=== PATIENT | male | born 1990 | race Two or more races ===

== ENCOUNTER 2024-09-08 10:56 | Emergency (ER) | payer MEDICAID, SELFPAY ==
[2024-09-08 10:56] VITALS: BMI 26.4
[2024-09-08 11:09] VITALS: BP 139/96; PULSE 124; RESP 19; TEMP 36.9; O2SAT 99
[2024-09-08 12:13] LABS: Basophils # (Auto) 0.1 Thou/mm3 (0.0-0.2); Basophils % (Auto) 0 % (0-2.5); Eosinophils # (Auto) 0.3 Thou/mm3 (0.0-0.5); Eosinophils % (Auto) 2 % (0-10); Hematocrit 45.2 % (41.0-53.0); Hemoglobin 16.1 g/dL (13.5-16.0); Immature Granulocytes % (Auto) 0 % (0-0); Immature Granulocytes Auto 0.04 Thou/mm3 (0.00-0.00); Lymphocytes # (Auto) 1.4 Thou/mm3 (1.0-4.8); Lymphocytes % (Auto) 11 % (10-50); Mean Corpuscular HGB Conc 35.6 g/dl (31.0-37.0); Mean Corpuscular Hemoglobin 31.2 pg (25.0-35.0); Mean Corpuscular Volume 88 fL (80-100); Monocytes # (Auto) 0.3 Thou/mm3 (0.0-0.8); Monocytes % (Auto) 3 % (0-12); Neutrophils % (Auto) 84 % (37-80); Nucleated Red Blood Cell % 0 /100 WBC (0); Platelet Count 338 Thou/mm3 (140-440); RDW Standard Deviation 39.5 fL (35.1-43.9); Red Blood Count 5.16 Miln/mm3 (4.50-5.90); White Blood Count 13.1 Thou/mm3 (3.8-10.6)
[2024-09-08 12:34] LABS: Alanine Aminotransferase 25 U/L (10-49); Albumin, Serum 4.9 gm/dL (3.5-5.0); Albumin/Globulin Ratio 1.4 (1.2-2.2); Alcohol, Blood Medical 11.3 mg/dL (0-10.0); Alkaline Phosphatase 121 U/L (46-116); Anion Gap 15 (7-16); Aspartate Amino Transferase 30 U/L (0-34); BUN/Creatinine Ratio 17 Ratio (12-20); Bilirubin,Total 0.6 mg/dL (0.3-1.2); Blood Urea Nitrogen 12 mg/dL (9-23); Calcium 10.3 mg/dL (8.3-10.6); Calcium (Corrected) 10.3 mg/dL (8.5-10.1); Carbon Dioxide 22.5 mMol/L (20.0-31.0); Chloride 102 mMol/L (98-107); Creatinine (Component) 0.7 mg/dL (0.6-1.3); Estimated Creatinine Clearance 121.7 mL/min (>60); Globulin 3.4 gm/dL (2.3-3.5); Glucose 136 mg/dL (74-106); Lipase 32 U/L (12-53); Osmolality,Calculated 279 (275-295); Potassium 4.2 mMol/L (3.4-5.1); Sodium 139 mMol/L (136-145); Total Protein 8.3 gm/dL (5.7-8.2); eGFR > 60 See Note
[2024-09-08 13:20] LABS: Magnesium 2.2 mg/dL (1.6-2.6)
[2024-09-08] MEDS: SODIUM CHLORIDE 0.9% 1000 ML 1,000 ML 999 ML IV (14:43)
[2024-09-08] MEDS: LORazepam 2 MG/ML VIAL IVP (14:50)
[2024-09-08] MEDS: METOCLOPRAMIDE INJ 5 MG/ML VIAL 2 ML 10 MG IVP (14:50)
--- NOTE | 2024-09-08 15:26 | PD.EDRME ---
Rapid Medical Screening Exam RME Arrival date/time: 09/08/24 10:56 33-year-old male who admits to drinking alcohol every day presents emergency department complains of nausea vomiting Chief Complaint: Alcohol Vital signs: Vital Signs Temperature 98.5 F 09/08/24 11:09 Pulse Rate 124 H 09/08/24 11:09 Respiratory Rate 19 09/08/24 11:09 Blood Pressure 139/96 H 09/08/24 11:09 Pulse Oximetry (%) 99 09/08/24 11:09 Oxygen Delivery Method Room Air 09/08/24 11:09
== END 2024-09-08 15:26 | disposition left against medical advice (07) ==
LOC: SERX 12:56
PROVIDERS: Nurse Practitioner Primary Care; Emergency Provider Emergency Medicine
DX: R11.2 Nausea with vomiting, unspecified (principal); Z53.29 Procedure and treatment not carried out because of patient's decision for other reasons
CPT/HCPCS: 36415; 80053; 80307; 80320; 81001; 83690; 83735; 85025; 96374; 96375; 99284; J2060; J2765; J7030; G0480

== ENCOUNTER 2024-10-26 17:35 | Emergency (ER) | payer SELFPAY ==
[2024-10-26 18:01] VITALS: BP 128/82; PULSE 69; RESP 19; TEMP 36.9; O2SAT 99
[2024-10-26 18:02] VITALS: BMI 23.3
--- NOTE | 2024-10-26 18:13 | EDNOTE_ITS ---
ED Male Genitalurinary RME/HPI General Chief complaint: Urogenital-Male Stated complaint: INFECTION TO PRIVATE AREA Time Seen by Provider: 10/26/24 18:07 Source: patient Arrival date/time: 10/26/24 17:35 33-year-old male no significant past medical history presents emergency department complaining of painful urination that is been ongoing since yesterday. Patient reports has 1 sexual partner which is a new sexual partner with sexual relations that started about a month ago. Patient denies any fever, chills, vomiting, genital lesions, or any other associated symptom. Mode of arrival: ambulatory Limitations: no limitations Related Data Previous Rx's ?Medication ?Instructions ?Recorded chlordiazepoxide HCl 25 mg capsule 25 mg PO Q12H PRN a lcohol 12/15/23 withdrawal #20 caps albuterol sulfate 90 mcg/actuation 2 puff inhalation Q 6H PRN 12/27/23 aerosol inhaler (Ventolin HFA) shortness of breath or wheezing #8.5 grams doxycycline hyclate 100 mg capsule 100 mg PO BID 7 day s #14 caps 10/26/24 Allergies Allergy/AdvReac Type Severity Reaction Status Date / Time No Known Allergies Allergy Verified 10/26/24 17:36 Review of Systems Review of Systems Systems Reviewed: All systems reviewed, normal except as documented Constitutional Constitutional: Reports system reviewed and no additional complaints, except as documented, Denies body ache(s), Denies chills and Denies fever(s) Eyes Eyes: Reports system reviewed and no additional complaints, except as documented and Denies change in vision ENT Ears, Nose, Mouth, and Throat: Reports system reviewed and no additional complaints, except as documented, Denies disequilibrium, Denies dizziness, Denies sore throat and Denies vertigo Cardiovascular Cardiovascular: Reports system reviewed and no additional complaints, except as documented, Denies chest pain and Denies dyspnea Respiratory Respiratory: Reports system reviewed and no additional complaints, except as documented, Denies chest congestion, Denies cough and Denies dyspnea Gastrointestinal Gastrointestinal: Reports system reviewed and no additional complaints, except as documented, Denies abdominal pain, Denies nausea and Denies vomiting Genitourinary Genitourinary: Reports dysuria Musculoskeletal Musculoskeletal: Reports system reviewed and no additional complaints, except as documented, Denies abnormal gait and Denies arthralgias Integumentary/Breasts Skin/Breast: Reports system reviewed and no additional complaints, except as documented, Denies erythema, Denies rash and Denies wounds Neurologic Neurologic: Reports system reviewed and no additional complaints, except as documented, Denies abnormal gait, Denies disequilibrium, Denies dizziness and Denies vertigo Past Medical History Past Medical History RESPIRATORY: Positive Asthma Social History SMOKING STATUS: Never smoker SUBSTANCE USE: marijuana ED Exam General Limitations: Present no limitations General appearance: Present alert and in no apparent distress Head Head exam: Present atraumatic Eye Eye exam: Present normal appearance, PERRL and EOMI ENT ENT exam: Present normal exam, normal oropharynx and mucous membranes moist Neck Neck exam: Present normal inspection, full ROM and trachea midline Chest Chest inspection: Present normal inspection and symmetric chest wall rise Respiratory Respiratory exam: Present normal lung sounds bilaterally Cardiovascular Cardiovascular exam: Present regular rate, normal rhythm and normal heart sounds Abdominal Exam Abdominal exam: Present soft and normal bowel sounds Extremities Exam Extremities exam: Present normal inspection and full ROM Back Exam Back exam: Present normal inspection and full ROM Neurological Exam Neurological exam: Present alert, oriented X3 and CN II-XII intact Psychiatric Psychiatric exam: Present normal affect and normal mood Skin Skin exam: Present warm, dry, intact and normal color Course Quality Measures none Orders Category Date Time Status Chlamydia/GC/TV - PCR Stat Lab 10/26/24 Ordered Urinalysis, C/S if Indicated Stat Lab 10/26/24 21:20 Completed Urine Culture Stat Lab 10/26/24 21:20 Received [id number] [Rocephin] 1,000 mg Med 10/26/24 22:00 Discontinued Lidocaine 1% 20 ml [Xylocaine 1% 20 ML] 2.1 ml IM X1 Vital Signs Vital signs: Vital Signs Temperature 98.4 F 10/26/24 18:01 Pulse Rate 69 10/26/24 18:01 Respiratory Rate 19 10/26/24 18:01 Blood Pressure 128/82 10/26/24 18:01 Pulse Oximetry (%) 99 10/26/24 18:01 Oxygen Delivery Method Room Air 10/26/24 18:01 99% room air within normal limits Urogenital - Male MDM Narrative MDM Narrative:: 33-year-old male no significant past medical history presents emergency department complaining of painful urination that is been ongoing since yesterday. Patient reports has 1 sexual partner which is a new sexual partner with sexual relations that started about a month ago. Patient denies any fever, chills, vomiting, genital lesions, or any other associated symptom. Patient appears nontoxic and is hemodynamically stable. On exam no genital lesions observed. Patient will be treated empirically for STI and instructed to follow-up with primary care provider for results of STI panel. Patient given IM Rocephin and discharged on oral doxycycline. Patient data External records reviewed:: [facility] previous records Clinical information provided by:: patient Social determinants that could affect healthcare access:: none Patient has the following chronic illnesses:: None How is presenting disease/condition affected by chronic disease/condition?: no chronic disease Evaluation data The following diagnostics were reviewed and interpreted by me:: lab results Lab and/or radiology exams considered but not ordered:: Ordered Interpretation Summary: Interpreted by me Medications / Prescriptions Medications or Prescriptions considered but not ordered:: Ordered Medication administrations:: Medication Administration History Discontinued Medications Ceftriaxone Sodium 1,000 mg/ (Lidocaine HCl 2.1 ml) 0 mg IM X1 ONE Stop: 10/26/24 22:01 Last Admin: 10/26/24 22:31 Dose: 1,000 mg Documented By: KF Given Consultations Consultation(s) initiated? (list below): No Diagnosis Urogenital Male Differential Diagnosis: urinary tract infection, urethritis, epididymitis, genital herpes simplex, prostatitis, acute retention of urine, inguinal hernia and other (STI) Most likely diagnosis given after review of the tests above:: UTI Admission Indicated Admission indicated?: not indicated Admission Request Was there a request for admission?: No Disposition Plan Disposition Plan: Discharge Discharge Attestation Discharge Attestation: The patient and all family members were given an opportunity to ask questions and understood the discharge instructions. Discharge instructions specifically effects, indications for sooner follow up or return to the emergency department, and the expected course of current diagnosis. Patient condition: Stable Discharge Plan Plan Patient Disposition: HOME (Self Care) Disposition Comment: Stable Prescriptions/Referrals Prescriptions/Med Rec: New doxycycline hyclate 100 mg capsule 100 mg PO BID 7 Days Qty: 14 0RF No Action chlordiazepoxide HCl 25 mg capsule 25 mg PO Q12H PRN (Reason: alcohol withdrawal) Qty: 20 0RF albuterol sulfate [Ventolin HFA] 90 mcg/actuation HFA aerosol inhaler 2 puff inhalation Q6H PRN (Reason: shortness of breath or wheezing) Qty: 8.5 0RF Referrals: No Primary/Family,Physician [Primary Care Provider] - In 1 week Problem List Clinical Impression: Urinary tract infection Patient/Caregiver Discharge Instructions Discharge Activity: activity as tolerated Education Materials: Urinary Tract Infections in Men, ED Testing for Suspected STI Additional Instructions: Drink plenty of fluids and take Tylenol or ibuprofen as needed for pain. Take antibiotics as prescribed. Abstain from sexual intercourse until completed antibiotic treatment and followed up with primary care provider in 2 to 3 days for results of STD panel. Return to emergency department for any worsening symptoms or as needed. Print Language: Martiniquais Stand Alone Forms: [facility] Award Info., Patient Portal Info Letter PA/HEALTH PLAN ADVISOR Supervising Physician PA/ANDREW Supervising Physician: Dr. Correia
[2024-10-26 21:29] LABS: Collection Type, Urine Clean Catch; Squamous Epithelial Cell,Urine 0 /hpf (0-5)
[2024-10-26 21:48] LABS: Bacteria,Urine Rare; Bilirubin,Urine Negative (Negative); Blood,Urine Trace (Negative); Clarity,Urine Clear (Clear/Hazy); Color,Urine Lt-Yellow (Lt Yel-Yel); Glucose, Urine Negative (Negative); Ketones,Urine Negative (Negative); Leukocyte Esterase,Urine Positive (Negative); Nitrite,Urine Negative (Negative); Protein,Urine Trace (Neg - Trace); RBC,Urine 12 /hpf (0-3); Specific Gravity,Urine 1.028 (1.001-1.035); Urobilinogen,Urine Negative mg/dL (0.0-1.0); WBC,Urine 64 /hpf (0-5)
[2024-10-26 21:49] LABS: Culture Indicated,Urine Yes
[2024-10-26 22:05] VITALS: BP 119/73; PULSE 58; RESP 18; TEMP 36.8; O2SAT 97
[2024-10-26] MEDS: cefTRIAXone 1,000 MG, LIDOCAINE 1% 20 ML 2.1 ML IM (22:31)
== END 2024-10-26 22:38 | disposition home or self-care (01) ==
PROVIDERS: Emergency Provider Emergency Medicine
DX: N39.0 Urinary tract infection, site not specified (principal)
CPT/HCPCS: 81001; 87086; 87491; 87591; 87661; 96372; 99283; J0696; J3490